=== PATIENT | male | born 2000 | race Caucasian/White ===

== ENCOUNTER 2021-05-09 16:12 | Emergency (ER) | payer MEDICAID ==
[~2021-05-09] VITALS: Ht 170.2 cm; Wt 72.6 kg
[2021-05-09 16:21] VITALS: BP_SYST 107
--- NOTE | 2021-05-09 17:30 | NUR ---
Patient to ER HALLWAY BED for evaluation. Side rails up.
--- NOTE | 2021-05-09 17:31 | NUR ---
PATIENT AOX 4 BIB BLS FROM WORK S/P SYNCOPAL EPISODE WHILE TALKING TO HIS BOSS. ARRIVES WITH C COLLAR. DENIES ANY PAIN AT THIS TIME
--- NOTE | 2021-05-09 18:16 | NUR ---
PATIENT REPORTS HAVING TROUBLE BREATHING WITH C- COLLAR ON. PATIENT SPEAKING FULL SENTANCES. RESPIRATIONS EVEN. MD NOTIFIED. DR. LYNN TO EVALUATE PATIENT.
[2021-05-09 18:20] VITALS: BP_SYST 136
--- NOTE | 2021-05-09 18:20 | NUR ---
MD JUNI Rocha at bedside examining patient.
--- NOTE | 2021-05-09 18:31 | NUR ---
ER Physician at bedside. C-spine cleared by . Hard collar removed by Dr. LYNN
--- NOTE | 2021-05-09 18:49 | NUR ---
Patient does not wish to proceed with medical care recommended by Dr. Gilliland. Patient given information related to possible complications, up to and including , which could occur as a result of leaving hospital at this time. Patient verbalizes understanding of risks involved leaving against medical advice. Patient has signed AMA form.
--- NOTE | 2021-05-09 18:55 | NUR ---
PT REFUSING BLOOD DRAW
== END 2021-05-09 18:49 | disposition left against medical advice (07) ==
LOC: SED 16:12
DX: R55 Syncope and collapse (principal)
CPT/HCPCS: 99283